=== PATIENT | male | born 1965 | race Caucasian/White ===

== ENCOUNTER → 2019-12-17 07:30 | Day surgery (SDC) | payer BC ==
[~2019-12-17 07:30] MED LIST: Buffered Lidocaine 1% SYRIN* 1 ML/SYRINGE INTRADERM ONE; Bupivacaine 0.25% SDV PF* 10 ML VIAL INJ ONE; Lactated Ringers 1000 ML Bag* 1,000 ML IV SCH; Midazolam* 1 MG/ML 5 ML VIAL (5 MG) ONE; Naloxone* 0.4 MG/ML 1 ML VIAL IV PRN; Ondansetron INJ* 2 MG/ML VIAL IV PRN; ceFAZolin 2 GM in NS PREMIX(*) 2 GM/100 ML BAG IVPB ONE; fentaNYL* 50 MCG/ML 2 ML VIAL (100 MCG VIAL) IV PRN; fentaNYL* 50 MCG/ML 2 ML VIAL (100 MCG VIAL) ONE; oxyCODONE/Acetamin 5/325 MG* TAB PO PRN
[2019-12-17 11:34] VITALS: BP 96/69
== END | disposition home or self-care (01) ==
LOC: OR 07:30
PROVIDERS: ATTEND Plastic Surgery
DX: D23.61 Other benign neoplasm of skin of right upper limb, including shoulder (principal); Z85.830 Personal history of malignant neoplasm of bone; E55.9 Vitamin D deficiency, unspecified
CPT/HCPCS: 88305; J0690; J2250; J3010; J3490